=== PATIENT | female | born 1975 | race Two or more races ===

== ENCOUNTER 2024-02-11 21:31 | Emergency (ER) | payer OTHER ==
[~2024-02-11] VITALS: Ht 167.6 cm; Wt 70.3 kg
[2024-02-11] MEDS ORDERED: KETOROLAC TROMETHAMINE INJ 30 MG/ML VIAL ONE (22:20)
[2024-02-11] MEDS ORDERED: BACLOFEN (10 MG) 10 MG TABLET ONE (22:20)
[2024-02-11] MEDS: BACLOFEN (10 MG) 10 MG TABLET PO ONE (22:30)
[2024-02-11] MEDS: KETOROLAC TROMETHAMINE INJ 30 MG/ML VIAL IM ONE (22:33)
[2024-02-11] MEDS ORDERED: BACL10TA PO (23:11)
[2024-02-11] MEDS ORDERED: KETO10TA2 PO (23:11)
[2024-02-11 23:55] VITALS: BP 135/86; TEMP 98.1; O2SAT 99
== END 2024-02-11 23:57 | disposition home or self-care (01) ==
LOC: ER 21:38
DX: M79.602 Pain in left arm (principal); M54.10 Radiculopathy, site unspecified; R20.2 Paresthesia of skin
CPT/HCPCS: 93971-TC; J1885